=== PATIENT | male | born 1955 | race Caucasian/White ===

== ENCOUNTER 2023-03-02 12:52 | Emergency (ER) | payer BC, OTHER ==
[2023-03-02 13:12] VITALS: BP 123/50; PULSE 70; RESP 16; TEMP 98.8; BMI 29.0
[2023-03-02 14:08] LABS: HEMATOCRIT 41.1 % (35.4-49); HEMOGLOBIN 14.1 G/dL (11.7-16.9); MCH 30.8 pg (25.7-33.7); MCHC 34.4 g/dl (32.0-35.9); MEAN CELL VOLUME 89.5 fl (80-96); MEAN PLT VOLUME 9.3 fl (7.5-11.1); PLATELET COUNT 156.9 10^3/uL (134-434); RBC 4.59 10^6/uL (4.00-5.60); RDW 13.9 % (11.9-15.9); WHITE BLOOD COUNT 6.6 10^3/uL (4.0-10.8)
[2023-03-02 14:12] LABS: PLATELET ESTIMATE ADEQUATE
[2023-03-02 14:50] LABS: ALBUMIN 3.8 g/dl (3.4-5.0); BILIRUBIN,TOTAL 0.5 mg/dl (0.2-1); CREATININE 0.9 mg/dl (0.6-1.3); POTASSIUM 3.5 mmol/L (3.5-5.1); TOT PROT 5.9 g/dl (6.4-8.2)
== END 2023-03-02 16:26 | disposition home or self-care (01) ==
LOC: FER 12:52
DX: R19.7 Diarrhea, unspecified (principal); R11.0 Nausea; R42 Dizziness and giddiness; R53.83 Other fatigue; K52.9 Noninfective gastroenteritis and colitis, unspecified
CPT/HCPCS: 36415; 80053; 83690; 85027; 87045; 87046; 87205; 87209; 87324; 87449; 99283-25